=== PATIENT | male | born 1980 | race African-American/Black ===

== ENCOUNTER 2018-01-19 06:52 | Emergency (ER) | payer OTHER ==
[~2018-01-19] VITALS: Ht 172.7 cm; Wt 80.0 kg
[2018-01-19 11:00] VITALS: BP 121/71
== END 2018-01-19 11:00 | disposition home or self-care (01) | DRG 897 ==
LOC: ED 06:52
DX: F10.10 Alcohol abuse, uncomplicated (principal)

== ENCOUNTER 2018-01-21 14:32 | Emergency (ER) | payer OTHER ==
[~2018-01-21] VITALS: Ht 172.7 cm; Wt 75.0 kg
[2018-01-21] MEDS ORDERED: CEPHALEXIN500 M1 PO (15:15)
[2018-01-21 15:20] VITALS: BP 125/77
== END 2018-01-21 15:25 | DRG 605 ==
LOC: ED 14:32
PROC: 0HQDXZZ Repair Right Lower Arm Skin, External Approach (ICD-10-PCS; principal; 2018-01-21)
PROC: 0HQMXZZ Repair Right Foot Skin, External Approach (ICD-10-PCS; 2018-01-21)
PROC: 0HQLXZZ Repair Left Lower Leg Skin, External Approach (ICD-10-PCS; 2018-01-21)
DX: S61.512A Laceration without foreign body of left wrist, initial encounter (principal); S81.012A Laceration without foreign body, left knee, initial encounter; S91.011A Laceration without foreign body, right ankle, initial encounter; S61.411A Laceration without foreign body of right hand, initial encounter; S60.811A Abrasion of right wrist, initial encounter; X99.0XXA Assault by sharp glass, initial encounter; Y92.009 Unspecified place in unspecified non-institutional (private) residence as the place of occurrence of the external cause